=== PATIENT | female | born 1960 | race Hispanic/Latino ===

== ENCOUNTER 2018-03-28 15:09 | Emergency (ER) | payer SELFPAY ==
[2018-03-28] MEDS ORDERED: Ondansetron PF 4 MG/2 ML Vial ONE (15:24)
[2018-03-28 15:56] LABS: ALT (SGPT) 23 U/L (8-55); AST (SGOT) 30 U/L (5-34); Albumin 3.9 g/dL (3.5-5.0); Alkaline Phosphatase 142 U/L (40-150); Anion Gap 13 mmol/L (10-20); BUN (Urea Nitrogen) 11 mg/dL (9.8-20.1); Bilirubin, Total 0.8 mg/dL (0.2-1.2); Calc. Creatinine Clearance 0 mL/min (70-130); Calcium 9.3 mg/dL (7.8-10.44); Carbon Dioxide 28 mmol/L (22-29); Chloride 102 mmol/L (98-107); Estimated GFR-MDRD 70; Globulin 3.8 g/dL (2.4-3.5); Glucose 158 mg/dL (70-105); Lipase 24 U/L (8-78); Potassium 3.8 mmol/L (3.5-5.1); Protein, Total 7.7 g/dL (6.0-8.3); Sodium 139 mmol/L (136-145)
[2018-03-28 16:02] LABS: Band 5 % (5-11); Hemoglobin 14.1 g/dL (12.0-16.0); Lymphocytes 5 % (21-51); MDiff Complete? YES; Mean Corpuscular HGB CONC 32.4 g/dL (32.0-36.0); Mean Corpuscular Hemoglobin 28.6 pg (27.0-31.0); Mean Corpuscular Volume 88.5 fL (78.0-98.0); Mean Platelet Volume 9.8 fL (7.4-10.4); Monocytes 9 % (0-10); Neutrophil 81 % (42-75); Platelet Count 249 thou/uL (130-400); Red Blood Cell (RBC) Count 4.93 mill/uL (4.20-5.40); White Blood Cell (WBC) Count 14.2 thou/uL (4.8-10.8)
[2018-03-28] MEDS ORDERED: Acetaminophen 500 MG TAB ONE (16:19)
[2018-03-28] MEDS ORDERED: Azithromycin 500 MG VIAL ONE (16:25)
[2018-03-28] MEDS ORDERED: Sodium Chloride 0.9% 100 ML ONE (16:25)
[2018-03-28 17:44] LABS: Clarity Cloudy (Clear)
[2018-03-28 17:45] LABS: Bilirubin Negative (Negative); Blood, Urine Moderate (Negative); Glucose, Urine (Dipstick) Negative (Negative); Leukocyte Large (Negative); Nitrite Negative (Negative); Protein, Urine (Dipstick) 100 mg/dL (Neg-Trace); pH, Urine 8.5 (5.0-9.0)
[2018-03-28 18:01] LABS: Bacteria/HPF 4+ HPF (None Seen); Crystals/HPF None Seen HPF (Negative); Hyaline Casts/LPF NONE SEEN LPF (0-3 Hyaline); Other Casts/LPF None Seen LPF (0-3 Hyaline); Oval Fat Bodies/HPF None Seen HPF (None Seen); Renal Epithelial None Seen HPF (0-3); Sperm/HPF None Seen HPF (None Seen); Transitional Epithelial NONE SEEN HPF (0-3); Trichomonas/HPF None Seen HPF (None Seen); Yeast-All Forms None Seen HPF (None Seen)
[2018-03-28] MEDS ORDERED: Ciprofloxacin 500 MG TAB ONE (18:10)
--- NOTE | 2018-03-28 20:20 | RAD ---
PORTABLE CHEST 03/28/18 An AP portable film at 1425 shows a normal sized heart. There is no vascular congestion or edema. No large effusions are seen. While here is a little haziness in the left lung base, this may be due to p ositioning and the portable technique. If there are any signs and symptoms of pneumonia, there might need to be a followup PA film. IMPRESSION: Probably negative study. See above. POS: HOME
== END 2018-03-28 18:17 | disposition home or self-care (01) ==
LOC: BURERS 15:09
DX: N39.0 Urinary tract infection, site not specified (principal); R11.2 Nausea with vomiting, unspecified; R07.89 Other chest pain
CPT/HCPCS: 71045; 80053; 81003; 81015; 83605; 83690; 84484; 85025; 87040; 87077; 87086; 87149; 87186; 87804; 93005; 94760; 96365; 96375; J0456; J2405; J7050

== ENCOUNTER 2019-12-29 15:01 | Emergency (ER) | payer MEDICARE, SELFPAY ==
[~2019-12-29 15:01] MED LIST: Iopamidol 370 76% 100 ML VIAL ONE
[2019-12-29 16:25] LABS: ALT (SGPT) 36 U/L (8-55); AST (SGOT) 38 U/L (5-34); Albumin 4.1 g/dL (3.4-4.8); Alkaline Phosphatase 136 U/L (40-110); Anion Gap 15 mmol/L (10-20); BUN (Urea Nitrogen) 18 mg/dL (9.8-20.1); Bilirubin, Total 0.5 mg/dL (0.2-1.2); Calc. Creatinine Clearance 0 mL/min (70-130); Calcium 9.3 mg/dL (7.8-10.44); Carbon Dioxide 28 mmol/L (23-31); Chloride 104 mmol/L (98-107); Glucose 110 mg/dL (80-115); Lipase 23 U/L (8-78); Potassium 3.7 mmol/L (3.5-5.1); Protein, Total 8.1 g/dL (6.0-8.3); Sodium 143 mmol/L (136-145)
[2019-12-29 16:28] LABS: #Basophils 0.1 thou/uL (0.0-0.2); #Eosinphils 0.3 thou/uL (0.0-0.7); #Lymphocytes 1.9 thou/uL (1.20-3.40); #Monocytes 0.5 thou/uL (0.11-0.59); #Neutrophils 7.8 thou/uL (1.40-6.50); %Basophils 1.2 % (0.0-1.0); %Eosinophils 2.6 % (0.0-10.0); %Lymphocytes 17.9 % (21.0-51.0); %Monocytes 5.1 % (0.0-10.0); %Neutrophils 73.3 % (42.0-75.0); Hemoglobin 15.6 g/dL (12.0-16.0); Mean Corpuscular HGB CONC 31.6 g/dL (32.0-36.0); Mean Corpuscular Volume 91.6 fL (78.0-98.0); Mean Platelet Volume 12.7 fL (7.4-10.4); Platelet Count 249 thou/uL (130-400); RBC Distribution Width 13.1 % (11.5-14.5); Red Blood Cell (RBC) Count 5.38 mill/uL (4.20-5.40); White Blood Cell (WBC) Count 10.6 thou/uL (4.8-10.8)
[2019-12-29 16:29] LABS: Large Platelets SLIGHT; MDiff Complete? YES
[2019-12-29] MEDS ORDERED: Lorazepam 2 MG/ML VIAL ONE (16:53)
[2019-12-29 16:56] LABS: Bilirubin Small (Negative); Blood, Urine Trace (Negative); Clarity Turbid (Clear); Glucose, Urine (Dipstick) Negative (Negative); Ketone, Urine 40 mg/dL (Negative); Leukocyte Moderate (Negative); Nitrite Negative (Negative); Protein, Urine (Dipstick) 100 mg/dL (Neg-Trace); Specific Gravity, Urine 1.015 (1.005-1.030); Urobilinogen 0.2 mg/dL (Less than 2); pH, Urine Greater/Equal 9.0 (5.0-9.0)
[2019-12-29 17:08] LABS: Bacteria/HPF 4+ HPF (None Seen); RBC/HPF 0-3 HPF (0-3)
[2019-12-29] MEDS ORDERED: Aspirin Chewable 81 MG TAB ONE (17:55)
--- NOTE | 2019-12-29 19:09 | CT ---
CTA AORTIC DISSECTION WITH CONTRAST: Date: 12-29-[address] angio of the chest and abdomen was done using an aortic dissection protocol in this patient who presents with chest and back pain. Axial slices were acquired after a bolus of contrast, then MIP rec onstructions were done in various planes. FINDINGS: CT ANGIO OF THE CHEST: There is good opacification of the aorta. There is no sign of aortic dissection or aneurysm. Both rig ht and left coronary arteries appear to fill adequately. There is no sign of pericardial effusion. No mediastinal mass or adenopathy was seen. The pulmonary arteries also fill fairly well and show no de fects in the more proximal branches to suggest emboli. The lungs show some dependent atelectasis, par ticularly in the lung bases. There was a focal area of pleural thickening seen along the right latera l chest wall at the pulmonary artery level, however, CT numbers indicate that it is fatty deposition. CT of the abdomen shows no sign of aneurysm or dissection involving the abdominal aorta. The celiac a rtery, SMA, LINDA and both renal arteries fill normally. No major stenosis was appreciated. Each common iliac artery fills normally. The liver is slightly low in density so there may be some fatty infiltration, but no focal hepatic le tesfaye was seen. The spleen and pancreas showed no acute findings. The common bile duct was prominent i n size but acceptable for a post cholecystectomy patient. The kidneys show no solid mass or hydroneph rosis. The adrenal glands appear normal. The visible bowel on this study showed no dilation or wall thickening. IMPRESSION: No acute findings to explain the patient's pain. Specifically, there is no evidence of aortic aneurys m, dissection, or a major pulmonary embolus. No acute bony abnormalities were seen. Preliminary report called to Roesnda in ER at 1746 on 12-29-2019. POS: HOME
== END 2019-12-29 18:00 | disposition home or self-care (01) ==
LOC: BURERS 15:01
DX: M54.5 Low back pain (principal); N39.0 Urinary tract infection, site not specified; E11.9 Type 2 diabetes mellitus without complications; R00.0 Tachycardia, unspecified
CPT/HCPCS: 36415; 71275; 74174; 80053; 81003; 81015; 83690; 84484; 85025; 93005; 96374; J2060; Q9967

== ENCOUNTER 2023-01-05 17:16 | Emergency (ER) | payer MEDICARE | END 2023-01-05 18:00 | disposition home or self-care (01) | LOC: BURERS 17:16 | DX: G89.29 Other chronic pain (principal); E11.9 Type 2 diabetes mellitus without complications | CPT/HCPCS: 99283 ==

== ENCOUNTER 2023-01-06 23:18 | Emergency (ER) | payer MEDICARE ==
[2023-01-07 00:05] LABS: #Basophils 0.2 thou/uL (0.0-0.2); #Eosinphils 0.2 thou/uL (0.0-0.7); #Lymphocytes 2.4 thou/uL (1.20-3.40); #Monocytes 0.7 thou/uL (0.11-0.59); #Neutrophils 5.6 thou/uL (1.40-6.50); %Basophils 1.9 % (0.0-1.0); %Lymphocytes 26.7 % (21.0-51.0); %Monocytes 7.3 % (0.0-10.0); %Neutrophils 62.1 % (42.0-75.0); Hematocrit 44.6 % (36.0-47.0); Hemoglobin 14.7 g/dL (12.0-16.0); Mean Corpuscular HGB CONC 32.9 g/dL (32.0-36.0); Mean Corpuscular Hemoglobin 29.2 pg (27.0-31.0); Mean Corpuscular Volume 88.8 fl (78.0-98.0); Mean Platelet Volume 11.4 fL (7.4-10.4); Platelet Count 223 10x3/uL (130-400); RBC Distribution Width 12.3 % (11.5-14.5); Red Blood Cell (RBC) Count 5.02 mill/uL (4.20-5.40); White Blood Cell (WBC) Count 8.9 10x3/uL (4.8-10.8)
[2023-01-07 00:09] LABS: Bilirubin Negative (Negative); Blood, Urine Trace (Negative); Clarity Turbid (Clear); Glucose, Urine (Dipstick) Negative (Negative); Ketone, Urine Negative (Negative); Leukocyte Large (Negative); Nitrite Negative (Negative); Protein, Urine (Dipstick) 100 mg/dL (Neg-Trace); Specific Gravity, Urine 1.015 (1.005-1.030); Urobilinogen 0.2 mg/dL (Less than 2); pH, Urine 8.5 (5.0-9.0)
[2023-01-07 00:15] LABS: Bacteria/HPF 3+ HPF (None Seen); CAUTI Indications for Culture Dysuria,urgency,freq; RBC/HPF 0-3 HPF (0-3); Transitional Epithelial 0-3 HPF (None Seen)
[2023-01-07 00:16] LABS: Triple Phosphate Crystal Rare HPF (None Seen)
[2023-01-07 00:17] LABS: Urine Culture Reflex Yes Yes
[2023-01-07 00:22] LABS: ALT (SGPT) 13 U/L (8-55); AST (SGOT) 17 U/L (5-34); Albumin 4.2 g/dL (3.4-4.8); Alkaline Phosphatase 103 U/L (40-110); Anion Gap 12 mmol/L (10-20); BUN (Urea Nitrogen) 15 mg/dL (9.8-20.1); Bilirubin, Total 0.6 mg/dL (0.2-1.2); Calc. Creatinine Clearance 0 mL/min (70-130); Carbon Dioxide 23 mmol/L (23-31); Chloride 109 mmol/L (98-107); Estimated GFR 86; Globulin 3.9 g/dL (2.4-3.5); Glucose 122 mg/dL (80-115); Lipase 62 U/L (8-78); Potassium 3.2 mmol/L (3.5-5.1); Protein, Total 8.1 g/dL (5.8-8.1); Sodium 141 mmol/L (136-145)
[2023-01-07] MEDS ORDERED: Ciprofloxacin 500 MG TAB ONE (00:33)
[2023-01-07] MEDS ORDERED: Morphine 4 MG/ML VIAL ONE (00:34)
== END 2023-01-07 00:59 | disposition home or self-care (01) ==
LOC: BURERS 23:18
DX: N39.0 Urinary tract infection, site not specified (principal); E11.9 Type 2 diabetes mellitus without complications
CPT/HCPCS: 36415; 74176; 80053; 81001; 83605; 83690; 85025; 87077; 87086; 87186; 96374; J2270

== ENCOUNTER 2023-12-12 13:30 | Emergency (ER) | payer MEDICARE | END 2023-12-12 14:46 | disposition home or self-care (01) | LOC: BURERS 13:30 | DX: S39.012A Strain of muscle, fascia and tendon of lower back, initial encounter (principal); M51.369 Other intervertebral disc degeneration, lumbar region without mention of lumbar back pain or lower extremity pain; K04.7 Periapical abscess without sinus; W19.XXXA Unspecified fall, initial encounter | CPT/HCPCS: 72131 ==

== ENCOUNTER 2024-02-24 02:14 | Emergency (ER) | payer MEDICARE ==
[2024-02-24] MEDS ORDERED: Ketorolac Tromethamine 30 MG (1 mL) VIAL ONE (02:57)
[2024-02-24 03:18] LABS: #Basophils 0.2 thou/uL (0.0-0.2); #Eosinophils 0.2 thou/uL (0.0-0.7); #Lymphocytes 1.8 thou/uL (1.20-3.40); #Monocytes 0.7 thou/uL (0.11-0.59); #Neutrophils 7.5 thou/uL (1.40-6.50); %Basophils 1.9 % (0.0-1.0); %Eosinophils 1.7 % (0.0-10.0); %Lymphocytes 17.7 % (21.0-51.0); %Monocytes 6.5 % (0.0-10.0); %Neutrophils 72.2 % (42.0-75.0); Hematocrit 45.9 % (36.0-47.0); Hemoglobin 15.4 g/dL (12.0-16.0); Mean Corpuscular HGB CONC 33.6 g/dL (32.0-36.0); Mean Corpuscular Volume 86.1 fl (78.0-98.0); Mean Platelet Volume 10.3 fL (7.4-10.4); Platelet Count 243 10x3/uL (130-400); RBC Distribution Width 12.8 % (11.5-14.5); Red Blood Cell (RBC) Count 5.33 mill/uL (4.20-5.40); White Blood Cell (WBC) Count 10.4 10x3/uL (4.8-10.8)
[2024-02-24 03:32] LABS: Bilirubin Negative (Negative); Blood, Urine Trace (Negative); Clarity Slightly Cloudy (Clear); Glucose, Urine (Dipstick) Negative (Negative); Ketone, Urine Negative (Negative); Leukocyte Large (Negative); Nitrite Positive (Negative); Protein, Urine (Dipstick) Negative (Neg-Trace); Specific Gravity, Urine 1.015 (1.005-1.030)
[2024-02-24 03:33] LABS: ALT (SGPT) 49 U/L (8-55); AST (SGOT) 57 U/L (5-34); Alkaline Phosphatase 152 U/L (40-110); Anion Gap 17 mmol/L (10-20); BUN (Urea Nitrogen) 10 mg/dL (9.8-20.1); Bilirubin, Total 0.6 mg/dL (0.2-1.2); Calc. Creatinine Clearance 0 mL/min (70-130); Calcium 9.6 mg/dL (7.8-10.44); Carbon Dioxide 23 mmol/L (23-31); Chloride 106 mmol/L (98-107); Estimated GFR 69; Globulin 4.6 g/dL (2.4-3.5); Glucose 157 mg/dL (80-115); Potassium 3.6 mmol/L (3.5-5.1); Protein, Total 8.6 g/dL (5.8-8.1); Sodium 142 mmol/L (136-145)
[2024-02-24 03:39] LABS: Troponin I Less than 0.010 ng/mL (< 0.028)
[2024-02-24] MEDS ORDERED: Ondansetron ODT 4 MG TAB ONE (03:40)
[2024-02-24 03:42] LABS: Bacteria/HPF 3+ HPF (None Seen); CAUTI Indications for Culture Pelvic or flank pain; RBC/HPF 0-3 HPF (0-3)
[2024-02-24 03:43] LABS: Urine Culture Reflex No No
[2024-02-24 03:52] LABS: Amphetamine Not Detected (NotDetected); Barbiturates Screen Not Detected (NotDetected); Benzodiazepine Screen Not Detected (NotDetected); Cocaine Metabolite Screen Not Detected (NotDetected); Methadone Not Detected (NotDetected); Methamphetamine Not Detected (NotDetected); Opiate Screen Not Detected (NotDetected); Oxycodone Screen Not Detected (NotDetected); Phencyclidine (PCP) Not Detected (NotDetected); THC/Cannabinoid Screen Not Detected (NotDetected); Tricyclic Screen Not Detected (NotDetected)
[2024-02-24] MEDS ORDERED: HYDROcodone/Acetaminophen 10/325 mg Tablet ONE (04:13)
[2024-02-24] MEDS ORDERED: Nitrofurantoin Monohyd/M-Cryst 100 MG CAP ONE (04:13)
== END 2024-02-24 05:03 | disposition home or self-care (01) ==
LOC: BURERS 02:14
DX: N39.0 Urinary tract infection, site not specified (principal); M54.50 Low back pain, unspecified; E11.9 Type 2 diabetes mellitus without complications; Z79.899 Other long term (current) drug therapy
CPT/HCPCS: 71045; 80053; 80306; 81001; 83735; 84484; 85025; 93005; J1885; Q0162; 36415; 96372

== ENCOUNTER 2024-09-17 00:31 | Emergency (ER) | payer MEDICARE ==
[2024-09-17 01:01] LABS: #Basophils 0.4 thou/uL (0.0-0.2); #Eosinophils 0.4 thou/uL (0.0-0.7); #Lymphocytes 1.1 thou/uL (1.20-3.40); #Monocytes 1.0 thou/uL (0.11-0.59); #Neutrophils 11.3 thou/uL (1.40-6.50); %Basophils 2.6 % (0.0-1.0); %Eosinophils 2.9 % (0.0-10.0); %Lymphocytes 8.0 % (21.0-51.0); %Monocytes 7.2 % (0.0-10.0); %Neutrophils 79.3 % (42.0-75.0); Hematocrit 37.4 % (36.0-47.0); Hemoglobin 12.8 g/dL (12.0-16.0); Mean Corpuscular Hemoglobin 30.0 pg (27.0-31.0); Mean Corpuscular Volume 87.8 fl (78.0-98.0); Platelet Count 225 10x3/uL (130-400); Red Blood Cell (RBC) Count 4.26 mill/uL (4.20-5.40); White Blood Cell (WBC) Count 14.2 10x3/uL (4.8-10.8)
[2024-09-17] MEDS ORDERED: Aspirin Chewable 81 MG TAB ONE (01:02)
[2024-09-17] MEDS ORDERED: Ondansetron PF 4 MG/2 ML Vial ONE (01:02)
[2024-09-17 01:15] LABS: ALT (SGPT) 14 U/L (Less than 34); AST (SGOT) 20 U/L (11-34); Albumin 3.0 g/dL (3.1-4.5); Alkaline Phosphatase 143 U/L (40-110); Anion Gap 13 mmol/L (10-20); BUN (Urea Nitrogen) 18 mg/dL (9.8-20.1); Bilirubin, Total 0.3 mg/dL (0.3-1.2); Calc. Creatinine Clearance 0 mL/min (70-130); Calcium 8.3 mg/dL (7.8-10.44); Carbon Dioxide 24 mmol/L (23-31); Chloride 105 mmol/L (98-107); Globulin 3.6 g/dL (2.4-3.5); Glucose 151 mg/dL (80-115); Lipase 37 U/L (8-78); Potassium 3.9 mmol/L (3.5-5.1); Sodium 138 mmol/L (136-145)
[2024-09-17 01:16] LABS: Troponin I 0.023 ng/mL (< 0.028)
[2024-09-17] MEDS ORDERED: cefTRIAXone (ROCEPHIN) 2 GM VIAL ONE (01:51)
[2024-09-17] MEDS ORDERED: Azithromycin 500 MG VIAL ONE (01:52)
[2024-09-17 04:05] LABS: Troponin I 0.030 ng/mL (< 0.028)
[2024-09-17] MEDS ORDERED: Furosemide 40 MG (4 mL) VIAL ONE (04:23)
[2024-09-17 10:04] LABS: Troponin I 0.024 ng/mL (< 0.028)
[2024-09-17] MEDS ORDERED: Iopamidol 370 76% 100 ML VIAL ONE (15:03)
== END 2024-09-17 10:15 | disposition short-term general hospital (02) ==
LOC: BURERS 00:31
DX: R07.89 Other chest pain (principal); I10 Essential (primary) hypertension; E11.9 Type 2 diabetes mellitus without complications
CPT/HCPCS: 36415; 71045; 71275; 80053; 83605; 83690; 83880; 84484; 85025; 85379; 87040; 87426; 93005; 94760; 96365; 96375; J0456; J0696; J1940; J2270; J2405; Q9967

== ENCOUNTER 2024-11-28 21:19 | Emergency (ER) | payer MEDICARE ==
[2024-11-28] MEDS ORDERED: Ondansetron PF 4 MG/2 ML Vial ONE (21:59)
[2024-11-28 22:36] LABS: ALT (SGPT) 71 U/L (Less than 34); AST (SGOT) 88 U/L (11-34); Albumin 3.9 g/dL (3.1-4.5); Alkaline Phosphatase 213 U/L (40-110); Anion Gap 18 mmol/L (10-20); BUN (Urea Nitrogen) 14 mg/dL (9.8-20.1); Bilirubin, Total 0.5 mg/dL (0.3-1.2); Calc. Creatinine Clearance 0 mL/min (70-130); Calcium 9.1 mg/dL (7.8-10.44); Carbon Dioxide 17 mmol/L (23-31); Chloride 109 mmol/L (98-107); Globulin 4.0 g/dL (2.4-3.5); Glucose 115 mg/dL (80-115); Potassium 3.8 mmol/L (3.5-5.1); Sodium 140 mmol/L (136-145)
[2024-11-28 22:39] LABS: Hematocrit 40.3 % (36.0-47.0); Hemoglobin 14.4 g/dL (12.0-16.0); MDiff Complete? YES; Mean Corpuscular Hemoglobin 28.9 pg (27.0-31.0); Mean Corpuscular Volume 80.9 fl (78.0-98.0); Platelet Count 334 10x3/uL (130-400); Red Blood Cell (RBC) Count 4.98 mill/uL (4.20-5.40); White Blood Cell (WBC) Count 10.6 10x3/uL (4.8-10.8)
== END 2024-11-28 23:28 | disposition home or self-care (01) ==
LOC: BURERS 21:19
DX: E11.8 Type 2 diabetes mellitus with unspecified complications (principal); B19.20 Unspecified viral hepatitis C without hepatic coma; R74.01 Elevation of levels of liver transaminase levels; I10 Essential (primary) hypertension
CPT/HCPCS: 36415; 80053; 85025; 87428; 96374; 96375; J2270; J2405

== ENCOUNTER 2024-11-30 22:10 | Emergency (ER) | payer MEDICARE ==
[2024-11-30] MEDS ORDERED: Acetaminophen 500 MG TAB ONE (22:57)
== END 2024-11-30 22:55 | disposition home or self-care (01) ==
LOC: BURERS 22:10
DX: R53.1 Weakness (principal); G89.29 Other chronic pain; E11.9 Type 2 diabetes mellitus without complications; I10 Essential (primary) hypertension
CPT/HCPCS: 99284

== ENCOUNTER 2025-01-14 15:18 | Emergency (ER) | payer MEDICARE | END 2025-01-14 15:49 | disposition home or self-care (01) | LOC: BURERS 15:18 | DX: R21 Rash and other nonspecific skin eruption (principal); Z79.891 Long term (current) use of opiate analgesic; I10 Essential (primary) hypertension; E11.9 Type 2 diabetes mellitus without complications; B19.20 Unspecified viral hepatitis C without hepatic coma | CPT/HCPCS: 99282 ==

== ENCOUNTER 2025-01-17 14:40 | Emergency (ER) | payer MEDICARE | END 2025-01-17 15:03 | disposition home or self-care (01) | LOC: BURERS 14:40 | DX: N39.0 Urinary tract infection, site not specified (principal); E11.9 Type 2 diabetes mellitus without complications; I10 Essential (primary) hypertension | CPT/HCPCS: 99283 ==

== ENCOUNTER 2025-01-17 21:48 | Emergency (ER) | payer MEDICARE ==
[2025-01-17 22:40] LABS: #Basophils 0.1 thou/uL (0.0-0.2); #Eosinophils 0.1 thou/uL (0.0-0.7); #Lymphocytes 1.5 thou/uL (1.20-3.40); #Monocytes 0.5 thou/uL (0.11-0.59); #Neutrophils 4.4 thou/uL (1.40-6.50); %Basophils 1.3 % (0.0-1.0); %Eosinophils 1.2 % (0.0-10.0); %Lymphocytes 22.4 % (21.0-51.0); %Monocytes 8.2 % (0.0-10.0); %Neutrophils 66.8 % (42.0-75.0); Hematocrit 55.6 % (36.0-47.0); Hemoglobin 17.4 g/dL (12.0-16.0); Mean Corpuscular Hemoglobin 27.9 pg (27.0-31.0); Mean Corpuscular Volume 89.1 fl (78.0-98.0); Platelet Count 311 10x3/uL (130-400); Red Blood Cell (RBC) Count 6.24 mill/uL (4.20-5.40); White Blood Cell (WBC) Count 6.5 10x3/uL (4.8-10.8)
[2025-01-17] MEDS ORDERED: Ibuprofen 200 MG TAB ONE (22:57)
[2025-01-17 22:58] LABS: ALT (SGPT) 84 U/L (Less than 34); AST (SGOT) 78 U/L (11-34); Albumin 3.9 g/dL (3.1-4.5); Alkaline Phosphatase 157 U/L (40-110); Anion Gap 21 mmol/L (10-20); BUN (Urea Nitrogen) 8 mg/dL (9.8-20.1); Bilirubin, Total 0.5 mg/dL (0.3-1.2); Calc. Creatinine Clearance 0 mL/min (70-130); Calcium 9.6 mg/dL (7.8-10.44); Carbon Dioxide 21 mmol/L (23-31); Chloride 104 mmol/L (98-107); Globulin 4.0 g/dL (2.4-3.5); Glucose 176 mg/dL (80-115); Potassium 3.1 mmol/L (3.5-5.1); Sodium 143 mmol/L (136-145)
[2025-01-17 23:34] LABS: Glucose, Urine (Dipstick) 500 mg/dL (Negative); Leukocyte Trace (Negative); Protein, Urine (Dipstick) 100 mg/dL (Neg-Trace); Specific Gravity, Urine 1.015 (1.005-1.030)
[2025-01-17] MEDS ORDERED: Potassium Bicarbonate/Cit Ac 20 MEQ TAB ONE (23:34)
[2025-01-17 23:43] LABS: CAUTI Indications for Culture Pelvic or flank pain; RBC/HPF 0-3 HPF (0-3)
[2025-01-17 23:44] LABS: Bacteria/HPF 1+ HPF (None Seen)
[2025-01-17 23:45] LABS: Yeast-Budding 2+ HPF (None Seen); Yeast-Hyphae 1+ HPF (None Seen)
[2025-01-17 23:46] LABS: Urine Culture Reflex No No
== END 2025-01-18 01:43 | disposition home or self-care (01) ==
LOC: BURERS 21:48
DX: N39.0 Urinary tract infection, site not specified (principal); E86.0 Dehydration; E87.6 Hypokalemia; R29.700 NIHSS score 0; I10 Essential (primary) hypertension; E11.9 Type 2 diabetes mellitus without complications; Z79.84 Long term (current) use of oral hypoglycemic drugs; Z79.899 Other long term (current) drug therapy; Z79.52 Long term (current) use of systemic steroids
CPT/HCPCS: 36415; 80053; 81001; 83605; 85025; 87040; 87428; 96360; 96361; 99283